=== PATIENT | male | born 1935 | race African-American/Black ===

== ENCOUNTER 2016-10-22 11:29 | Emergency (ER) | payer MEDICARE, OTHER ==
[~2016-10-22] VITALS: Ht 182.9 cm; Wt 86.0 kg
[2016-10-22 17:15] VITALS: BP 140/73
[2016-10-22] MEDS ORDERED: IBUPROFEN 600MG TABLET PO ONE (17:30)
== END 2016-10-22 18:03 | disposition home or self-care (01) ==
LOC: ER 13:40
DX: H61.21 Impacted cerumen, right ear (principal); H60.91 Unspecified otitis externa, right ear; I10 Essential (primary) hypertension; H40.9 Unspecified glaucoma
CPT/HCPCS: 69209; 99283